=== PATIENT | female | born 1980 | race Caucasian/White ===

== ENCOUNTER 2024-05-23 20:11 | Emergency (ER) | payer BC, MEDICAID, OTHER ==
[2024-05-23] MEDS: Diphtheria,Pertussis(Acell),Tetanus Vaccine 0.5 ML Syringe IM ONE (20:54)
[2024-05-23] MEDS: Lidocaine 1% with EPINEPHrine 1:100,000 20 ML MDV INFILT PRN (20:54)
[2024-05-23] MEDS: Amoxicillin 875 MG Tab PO ONE (20:55)
== END 2024-05-23 21:27 | disposition home or self-care (01) ==
LOC: VM.ED 20:11 → SUPCPDRO 20:11 → VM.ED 21:27
DX: S01.81XA Laceration without foreign body of other part of head, initial encounter (principal); Z79.899 Other long term (current) drug therapy; W19.XXXA Unspecified fall, initial encounter
CPT/HCPCS: 12011; 70450; 90471; 90715; 99284; 99284-25; A9270-GY; J2004